=== PATIENT | female | born 1950 | race Caucasian/White ===

== ENCOUNTER → 2016-12-25 | Outpatient (CLI) | payer OTHER ==
[~2016-12-25] MED LIST: AMBIEN PO; BONIVA150 MG PO; CYMBALTA PO; EFFEXOR PO; LEXAPRO PO; LIPITOR PO; SEROQUEL PO; SYNTHROID PO
--- NOTE | ~2016-12-25 | MY11 ---
[facility] A Service of [facility] RADIOLOGY TEXT RESULTS PATIENT: TIFFANY SWENSON LOCATION: [facility] : 46 UNIT #: [id number] AGE: [address]: Jennyfer Plascencia MD SEX: F ORDER DR: [id number] [facility] [address] [place], [place] [address] [id number] O MR#: [id number] Acc #: [id number] NAME: TIFFANY SWENSON : 1950 SEX: F STUDY DATE/TIME: 12/25/2016 13:28 UNIT: [facility] ROOM: STUDY DESCRIPTION: MY Mammogram Screening Dig Lorenzo Attending Physician: Jennyfer Plascencia M.D. Referring Physician: Jennyfer Plascencia M.D. Ordering Physician: Jennyfer Plascencia M.D. Primary Care Physician: Jennyfer Plascencia M.D. MEDICAL IMAGING REPORT This report is preliminary unless electronic signature is present EXAM Digital screening mammogram 12/25/2016, [facility] HISTORY 66-year-old woman, no risk elevation. Annual screen. COMPARISON 02/25/2008 FINDINGS Digital imaging of each breast was completed utilizing a two-view examination of each breast in craniocaudal and mediolateral-oblique projections. Review and interpretation of digital mammograms include a second review in conjunction with FDA-approved CAD device. There is a normal parenchymal presentation bilaterally consistent with the patient's age. There are no breast masses imaged and no parenchymal asymmetry is visualized. There are no suspicious microcalcifications and I see no focal architectural disturbance. IMPRESSION Negative screening digital mammogram. One-year followup recommended. Patients over the age of 40 are entered into a reminder system with target due date for the next mammogram. A result letter will also be sent to the patient. BIRADS: 1 Negative ADDENDUM Breast parenchyma is fatty replaced. [facility] A Service [facility] RADIOLOGY TEXT RESULTS PATIENT: TIFFANY SWENSON LOCATION: [facility] : 46 UNIT #: [id number] AGE: [address]: Jennyfer Plascencia MD SEX: F ORDER DR: Dictated by... Jose A Springer M.D. THIS IS AN ELECTRONICALLY VERIFIED REPORT Jose A Springer M.D. at 12/25/2016 3:13 PM JBB/collin TD: 12/25/2016 14:22 JOB #: [id number] MEDICAL IMAGING REPORT Page 1 of 1 COPY
== END | disposition home or self-care (01) ==
LOC: CWCC 13:06
DX: Z12.31 Encounter for screening mammogram for malignant neoplasm of breast (principal); R92.8 Other abnormal and inconclusive findings on diagnostic imaging of breast
CPT/HCPCS: G0202